=== PATIENT | female | born 1985 | race Caucasian/White ===

== ENCOUNTER 2021-09-06 23:43 | Emergency (ER) | payer OTHER ==
[~2021-09-06 23:43] MED LIST: ALBUTEROL0.63 MG/3 INH; COLACE 100MG C100 MG PO; IBUPROFEN600 MG PO; LORTAB 5-325 M1 EACH PO
[2021-09-07 01:31] LABS: HEMOGLOBIN 12.1 gm/dl (12.3-15.3); RED BLOOD COUNT 3.8 M/UL (4.00-5.10); WHITE BLOOD COUNT 8.2 K/UL (4.5-11.0)
[2021-09-07 02:53] LABS: BUN/CREATININE RATIO 12 (0-10)
[2021-09-07] MEDS ORDERED: BACTRIM DS TAB1 EACH PO (06:14)
== END 2021-09-07 07:00 | disposition home or self-care (01) ==
LOC: ER1 23:43
PROVIDERS: Emergency Medicine; Family Medicine
DX: T40.1X1A Poisoning by heroin, accidental (unintentional), initial encounter (principal); N39.0 Urinary tract infection, site not specified; Z88.0 Allergy status to penicillin
CPT/HCPCS: 71045; 80053; 80307; 81001; 82550; 82553; 83874; 84484; 84703; 85025; 87077; 87086; 87186; 93005; 96374; 99284; J2405